=== PATIENT | male | born 1990 | race Two or more races ===

== ENCOUNTER 2023-12-11 03:50 | Emergency (ER) | payer MEDICARE, OTHER ==
[~2023-12-11] VITALS: Ht 165.1 cm; Wt 86.4 kg
[2023-12-11 03:57] VITALS: BP 144/100; PULSE 116; RESP 16; TEMP 98.2; O2SAT 100
[2023-12-11] MEDS: LITHIUM CARBONATE 600 MG CAPSULE PO ONE (04:44)
[2023-12-11] MEDS ORDERED: LITH600C5 PO (05:47)
== END 2023-12-11 06:19 | disposition home or self-care (01) ==
LOC: EMS 03:51
DX: Z76.0 Encounter for issue of repeat prescription (principal); F17.210 Nicotine dependence, cigarettes, uncomplicated
CPT/HCPCS: 99283

== ENCOUNTER 2024-02-04 08:30 | Outpatient (CLI) | payer MEDICARE, OTHER ==
[~2024-02-04 08:30] MED LIST: LITH600C5 PO
[2024-02-04 11:49] VITALS: BP 129/87; PULSE 113; RESP 18; TEMP 98.2; O2SAT 98
[2024-02-04] MEDS: LORazepam 1 MG TABLET PO ONE (12:45)
== END 2024-02-04 11:50 | disposition home or self-care (01) ==
LOC: CSU 08:30 → EDSTATUS 03-22 17:07
PROVIDERS: ATTEND Nurse Practitioner Acute Care
DX: F25.9 Schizoaffective disorder, unspecified (principal)
CPT/HCPCS: 90839; 90840

== ENCOUNTER 2024-02-04 12:17 | Emergency (ER) | payer MEDICARE, OTHER ==
[~2024-02-04] VITALS: Ht 165.1 cm; Wt 77.0 kg
[2024-02-04 13:10] VITALS: BP 127/102; PULSE 103; RESP 18; TEMP 97.9; O2SAT 97
[2024-02-04 13:23] LABS: BASOPHILS % (AUTO) 0.3 % (0.0-2.0); EOSINOPHILS % (AUTO) 2.1 % (1.0-6.0); HEMATOCRIT 44.9 % (41-53); LYMPHOCYTES # (AUTO) 1.7 K/uL (1.0-4.8); LYMPHOCYTES % (AUTO) 18.3 % (22.0-44.0); MEAN CORPUSCULAR HEMOGLOBIN 29.7 pg (26.0-34.0); MEAN CORPUSCULAR HGB CONC 33.5 G/dL (31.0-37.0); MEAN CORPUSCULAR VOLUME 89 fL (80-100); MONOCYTES # (AUTO) 1.1 K/uL (0.1-1.0); MONOCYTES % (AUTO) 12.1 % (2.0-9.0); NEUTROPHILS # (AUTO) 6.4 K/uL (1.8-7.7); NEUTROPHILS % (AUTO) 67.2 % (40.0-70.0); PLATELET COUNT (AUTO) 294 K/uL (150-450); RED BLOOD CELL COUNT(AUTO) 5.06 MIL/uL (4.50-5.90); WHITE BLOOD COUNT (AUTO) 9.5 K/uL (4.5-11.0)
[2024-02-04 13:34] LABS: ANION GAP 7 mmol/L (8-16); CALCIUM, TOTAL 9.2 mg/dL (8.8-10.5); CARBON DIOXIDE 31 mmol/L (22-29); CHLORIDE 104 mmol/L (98-107); CREATININE 0.77 mg/dL (0.60-1.30); GLOMERULAR FILTR. RATE CALC > 60 mL/min (>60); GLUCOSE,RANDOM 91 mg/dL (70-110); POTASSIUM 3.6 mmol/L (3.5-5.1); SODIUM SERUM 141 mmol/L (136-145); UREA NITROGEN, BLOOD 12 mg/dL (7-18)
[2024-02-04 13:35] LABS: LITHIUM < 0.20 mmol/L (0.60-1.20)
[2024-02-04 14:05] LABS: THYROID STIMULATING HORMONE 0.86 uIU/mL (0.36-3.74)
[2024-02-04 14:37] LABS: PH,URINE DRUG SCREEN 6.5 (5.0-8.0)
[2024-02-04 14:45] LABS: ALCOHOL, URINE DRUG SCREEN NEGATIVE (NEGATIVE); AMPHET/METH SCREEN,URINE NEGATIVE (NEGATIVE); BARBITURATE SCREEN, URINE NEGATIVE (NEGATIVE); BENZODIAZEPINES SCREEN,URINE NEGATIVE (NEGATIVE); CANNABINOID SCREEN,URINE NEGATIVE (NEGATIVE); COCAINE SCREEN,URINE NEGATIVE (NEGATIVE); METHADONE SCREEN, URINE NEGATIVE (NEGATIVE); OPIATE SCREEN,URINE NEGATIVE (NEGATIVE); PHENCYCLIDINE SCREEN,URINE NEGATIVE (NEGATIVE)
[2024-02-04 15:42] LABS: COVID AG,FIA SOURCE NASAL SWAB
[2024-02-04] MEDS: BACITRACIN 0.9 GM PACKET OINTMENT TP ONE (15:56)
[2024-02-04] MEDS: PERTUSS(ACELL),DIPH,TET/PF 0.5 ML SYRINGE [ADULT] IM. ONE (15:56)
[2024-02-04 16:06] LABS: SARS-COV2 (COVID) ANTIGEN,FIA Negative (Negative)
== END 2024-02-04 16:14 | disposition short-term general hospital (02) ==
LOC: EMS 12:22
DX: F25.9 Schizoaffective disorder, unspecified (principal); F31.9 Bipolar disorder, unspecified; F12.90 Cannabis use, unspecified, uncomplicated; F17.290 Nicotine dependence, other tobacco product, uncomplicated; Z79.899 Other long term (current) drug therapy; Z20.822 Contact with and (suspected) exposure to COVID-19
CPT/HCPCS: 80048; 80178; 80307; 84443; 85025; 90471; 90715; 99285

== ENCOUNTER 2024-02-04 16:40 | Outpatient (CLI) | payer MEDICARE, OTHER ==
[2024-02-04 16:00] VITALS: BP 142/78; PULSE 74; RESP 18; TEMP 98.4; O2SAT 98
== END 2024-02-24 18:45 | disposition home or self-care (01) ==
LOC: CSU 16:40 → EDSTATUS 03-23 15:06
PROVIDERS: ATTEND Nurse Practitioner Acute Care
DX: F25.9 Schizoaffective disorder, unspecified (principal)
CPT/HCPCS: 90839; 90840